=== PATIENT | female | born 1960 ===

== ENCOUNTER 2021-09-11 08:19 | Outpatient (CLI) | payer OTHER | END 2021-09-11 08:20 | disposition home or self-care (01) | LOC: RX STUDY 08:19 | PROVIDERS: ATTEND Internal Medicine Gastroenterology | DX: K21.9 Gastro-esophageal reflux disease without esophagitis (principal); K29.30 Chronic superficial gastritis without bleeding; R13.10 Dysphagia, unspecified ==

== ENCOUNTER 2021-09-13 13:30 | Outpatient (CLI) | payer OTHER | END 2021-09-13 13:32 | disposition home or self-care (01) | LOC: MAMO-SONO 13:30 | DX: N64.4 Mastodynia (principal) ==

== ENCOUNTER → 2021-10-15 15:30 | Outpatient (CLI) | payer OTHER | END | disposition home or self-care (01) | LOC: LAB 15:30 | PROVIDERS: ATTEND Obstetrics & Gynecology | DX: D64.89 Other specified anemias (principal); E78.49 Other hyperlipidemia; E07.89 Other specified disorders of thyroid; N39.0 Urinary tract infection, site not specified; M25.50 Pain in unspecified joint; R70.0 Elevated erythrocyte sedimentation rate; R73.09 Other abnormal glucose; E55.9 Vitamin D deficiency, unspecified; D50.8 Other iron deficiency anemias; Z12.11 Encounter for screening for malignant neoplasm of colon ==